=== PATIENT | male | born 1995 | race Caucasian/White ===

== ENCOUNTER → 2018-03-29 | Outpatient (CLI) | payer BC ==
[2018-03-29 12:03] LABS: EOS # 0.2 (0.04-0.40); EOS % 1.3 % (0.0-4.0); HEMOGLOBIN 15.7 g/dL (13.5-18.0); LYMPH# 1.9 (1.50-4.00); MEAN CORPUSCULAR HGB CONC 34 g/dL (33-37); MEAN PLATELET VOLUME 9.1 fl (7.4-10.4); MONO # 0.8 (0.20-0.80); PLATELET COUNT 317 K/mm3 (130-400); RED CELL DISTRIBUTION WIDTH 20.2 % (11.5-14.5); WHITE BLOOD COUNT 12.6 K/mm3 (4.8-10.8)
[2018-03-29 12:26] LABS: ALBUMIN 4.5 g/dL (3.5-5.0); CALCIUM 9.3 mg/dL (8.4-10.2); TOTAL BILIRUBIN 1.6 mg/dL (0.2-1.3)
[2018-03-29 12:41] LABS: MEAN CELL VOLUME 58 fl (78-100); MEAN CORPUSCULAR HEMOGLOBIN 20 pg (27-31); NEU # 9.6 (1.40-6.50); RED BLOOD COUNT 7.87 M/mm3 (4.20-5.60)
== END ==
LOC: LAB 11:46
PROVIDERS: Physician Assistant
DX: F41.1 Generalized anxiety disorder (principal); F32.9 Major depressive disorder, single episode, unspecified; G47.00 Insomnia, unspecified; D64.9 Anemia, unspecified; Z86.2 Personal history of diseases of the blood and blood-forming organs and certain disorders involving the immune mechanism; Z72.0 Tobacco use

== ENCOUNTER → 2019-10-09 | Outpatient (CLI) | payer BC | LOC: RAD 13:45 | DX: M25.78 Osteophyte, vertebrae (principal) ==